=== PATIENT | female | born 1945 | race Caucasian/White ===

== ENCOUNTER 2024-08-03 18:31 | Inpatient (IN) | payer MEDICARE, OTHER ==
[~2024-08-03] VITALS: Ht 170.2 cm; Wt 93.9 kg
[2024-08-03] MEDS ORDERED: HALOPERIDOL LACTATE INJ 5 MG/ML VIAL ONE (19:07)
[2024-08-03 19:16] LABS: BASOPHILS # (AUTO) 0.1 K/uL (0.0-0.2); BASOPHILS % (AUTO) 0.5 % (0.0-2.0); EOSINOPHILS # (AUTO) 0.1 K/uL (0.0-0.7); EOSINOPHILS % (AUTO) 0.7 % (0.0-6.0); HEMATOCRIT 38 % (33-45); HEMOGLOBIN 12.1 g/dL (11.5-14.8); LYMPHOCYTES # (AUTO) 0.6 K/uL (0.8-4.8); LYMPHOCYTES % (AUTO) 5.1 % (20.0-44.0); MEAN CORPUSCULAR HEMOGLOBIN 30 PG (26.0-33.0); MEAN CORPUSCULAR HGB CONC 32 g/dl (31.0-36.0); MEAN CORPUSCULAR VOLUME 94 fL (82-100); MONOCYTES # (AUTO) 0.5 K/uL (0.1-1.30); MONOCYTES % (AUTO) 4.1 % (2.0-12.0); NEUTROPHILS % (AUTO) 89.6 % (43.0-81.0); RED BLOOD CELL COUNT(AUTO) 3.99 MIL/uL (4.0-5.2); RED CELL DISTRIBUTION WIDTH 15.3 % (11.5-15.0); WHITE BLOOD COUNT (AUTO) 11.1 K/uL (4.3-11.0)
[2024-08-03] MEDS: HALOPERIDOL LACTATE INJ 5 MG/ML VIAL IM ONE (19:16)
[2024-08-03 19:24] LABS: CALCIUM, SERUM 8.7 mg/dL (8.5-10.1); CARBON DIOXIDE 25 mmol/L (21-32); CHLORIDE 108 mmol/L (98-107); CREATININE 0.9 mg/dL (0.6-1.3); GLUCOSE 197 mg/dL (74-106); POTASSIUM 3.9 mmol/L (3.5-5.1); SODIUM SERUM 141 mmol/L (136-145)
[2024-08-03 19:36] LABS: ALANINE AMINOTRANSFERASE 26 U/L (12-78); ALBUMIN 2.9 g/dL (3.4-5.0); ALCOHOL, BLOOD < 3 mg/dL (0-10); ALKALINE PHOSPHATASE 72 U/L (46-116); ASPARTATE AMINOTRANSFERASE 26 U/L (15-37); BILIRUBIN,DIRECT 0.1 mg/dL (0.0-0.2); BILIRUBIN,TOTAL 0.4 mg/dL (0.2-1.0); SALICYLATE 0.8 mg/dL (2.8-20.0); TOTAL PROTEIN, SERUM 6.5 g/dL (6.4-8.2)
[2024-08-03 19:37] LABS: ACETAMINOPHEN <10 ug/ml (10-30)
[2024-08-03 19:51] LABS: UREA NITROGEN, BLOOD 25 mg/dL (7-18)
[2024-08-03 19:55] LABS: PLATELET COUNT (AUTO) 192 K/uL (150-450)
[2024-08-03] MEDS ORDERED: ALPR0.5T8 PO (19:58)
[2024-08-03] MEDS ORDERED: OMEP20CA15 PO (19:58)
[2024-08-03] MEDS ORDERED: OLAN5TAB3 PO (19:58)
[2024-08-03] MEDS ORDERED: MELA3TAB41 PO (19:58)
[2024-08-03] MEDS ORDERED: ACET325T53 PO (19:58)
[2024-08-03] MEDS ORDERED: LIDO700A30 TP (19:58)
[2024-08-03] MEDS ORDERED: LEVO112T7 PO (19:58)
[2024-08-03] MEDS ORDERED: RIVA10TA PO (19:58)
[2024-08-03] MEDS ORDERED: ALBU18HF2 INH (19:58)
[2024-08-03] MEDS ORDERED: CHOL100034 PO (19:58)
[2024-08-03] MEDS ORDERED: DIPH1TAB PO (19:58)
[2024-08-03] MEDS ORDERED: BREO ELLIPTA IH (19:58)
[2024-08-03] MEDS ORDERED: ROSU20TA32 PO (19:58)
[2024-08-03] MEDS ORDERED: MEMA10TA56 PO (19:58)
[2024-08-03] MEDS ORDERED: ALBU2.5V38 NEB (19:58)
[2024-08-03] MEDS ORDERED: HYDR-4076 PO (19:58)
[2024-08-03] MEDS ORDERED: HYDR10TA PO (19:58)
[2024-08-03] MEDS ORDERED: NITR0.4T48 SL (19:58)
[2024-08-03 21:30] LABS: APPEARANCE,URINE Clear (CLEAR); BILIRUBIN,URINE Negative (NEGATIVE); BLOOD, URINE Negative Ery/uL (NEGATIVE); COLOR,URINE YELLOW (YELLOW); KETONES,URINE Negative (NEGATIVE); LEUKOCYTE ESTERASE ,URINE Negative (NEGATIVE); NITRITE, URINE Negative (NEGATIVE); PH,URINE 5.5 (5.0-8.0); PROTEIN,URINE Trace mg/dl (NEGATIVE); UGLUCOSE Negative (NEGATIVE); UROBILINOGEN,URINE 0.2 EU/dL (0.2)
[2024-08-03 21:35] LABS: ADD URINE CULTURE NO; BACTERIA,URINE Few /HPF (None Seen); SQUAMOUS EPITHELIAL CELL,UR Few /HPF (None Seen)
[2024-08-03 21:40] LABS: AMPHETAMINE, URINE NEGATIVE (NEGATIVE); BENZODIAZEPINE, URINE POSITIVE (NEGATIVE); CANNABINOID, URINE NEGATIVE (NEGATIVE); COCCAINE, URINE NEGATIVE (NEGATIVE); OPIATE, URINE NEGATIVE (NEGATIVE); PHENCYCLIDINE SCREEN,URINE NEGATIVE (NEGATIVE)
[2024-08-03 21:50] LABS: BARBITURATE, URINE NEGATIVE (NEGATIVE)
[2024-08-04] MEDS: BLOOD SUGAR DIAGNOSTIC 1 EACH STRIP IN ONE (02:22)
[2024-08-04] MEDS ORDERED: MAGNESIUM HYDROXIDE 30 ML UDC PO PRN (02:30)
[2024-08-04] MEDS ORDERED: MAG HYDROX/AL HYDROX/SIMETH 30 ML UDC PO PRN (02:30)
[2024-08-04] MEDS ORDERED: ZOLPIDEM TARTRATE 5 MG TABLET PO PRN (02:30)
[2024-08-04] MEDS ORDERED: LORAZEPAM 1 MG TABLET PO PRN (02:30)
[2024-08-04 03:00] VITALS: BP 122/79; TEMP 98; O2SAT 100
[2024-08-04] MEDS ORDERED: hydrALAZINE HCL 25 MG TABLET PO PRN (03:00)
[2024-08-04] MEDS ORDERED: NITROGLYCERIN 0.4 MG/TAB BOTTLE SL PRN (03:00)
[2024-08-04] MEDS ORDERED: ALBUTEROL FS 2.5 MG/3 ML VIAL.NEB NEB PRN (03:00)
[2024-08-04 07:47] LABS: ALANINE AMINOTRANSFERASE 24 U/L (12-78); ALBUMIN 2.8 g/dL (3.4-5.0); ALKALINE PHOSPHATASE 75 U/L (46-116); ASPARTATE AMINOTRANSFERASE 21 U/L (15-37); BILIRUBIN,TOTAL 0.3 mg/dL (0.2-1.0); CALCIUM, SERUM 8.9 mg/dL (8.5-10.1); CARBON DIOXIDE 28 mmol/L (21-32); CHLORIDE 110 mmol/L (98-107); CREATININE 0.7 mg/dL (0.6-1.3); GLUCOSE 92 mg/dL (74-106); POTASSIUM 3.8 mmol/L (3.5-5.1); SODIUM SERUM 143 mmol/L (136-145); TOTAL PROTEIN, SERUM 6.5 g/dL (6.4-8.2); UREA NITROGEN, BLOOD 21 mg/dL (7-18)
[2024-08-04 07:58] LABS: CHOLESTEROL 83 mg/dL (<200); HDL CHOLESTEROL 51 mg/dL (40-60); LDL 24 mg/dL (0-99); TRIGLYCERIDES 65 mg/dL (30-150)
[2024-08-04 08:00] VITALS: BP 147/58; TEMP 98.7; O2SAT 98
[2024-08-04] MEDS: LEVOTHYROXINE SODIUM 112 MCG TABLET PO SCH (08:04)
[2024-08-04] MEDS: PANTOPRAZOLE 40 MG TABLET.DR PO SCH (08:04)
[2024-08-04] MEDS: LIDOCAINE 5% (PATCH) 1 EA PATCH TP SCH (09:39)
[2024-08-04] MEDS: CHOLECALCIFEROL 1,000 UNIT TABLET (VIT D3) PO SCH (09:40)
[2024-08-04] MEDS: ATORVASTATIN 40 MG TABLET PO SCH (09:40)
[2024-08-04] MEDS: Z GUARD REMEDY 4 OZ OINT TP PRN (09:41)
[2024-08-04] MEDS: Z GUARD REMEDY 4 OZ OINT TP SCH (09:43)
[2024-08-04] MEDS: FLUTICASONE/VILANTEROL 1 EACH BLST.W.DEV IH SCH (09:43)
[2024-08-04 16:00] VITALS: BP 133/80; TEMP 98.6; O2SAT 99
[2024-08-04] MEDS: OLANZAPINE 5 MG TABLET PO SCH (17:31)
[2024-08-04] MEDS: RIVAROXABAN 10 MG TABLET PO SCH (18:00)
[2024-08-04] MEDS: LORAZEPAM 1 MG TABLET PO PRN (19:16)
[2024-08-04 20:00] VITALS: BP 97/76; TEMP 98.3; O2SAT 96
[2024-08-04] MEDS: MEMANTINE HCL 5 MG TABLET PO SCH (20:21)
[2024-08-05] MEDS: ZOLPIDEM TARTRATE 5 MG TABLET PO PRN (01:54)
[2024-08-05 08:00] VITALS: BP 153/100; TEMP 97.9; O2SAT 96
[2024-08-05 16:00] VITALS: BP 159/64; TEMP 97.9; O2SAT 96
[2024-08-05 20:00] VITALS: BP 103/64; TEMP 97.8; O2SAT 95
[2024-08-05 22:00] VITALS: BP 103/64
[2024-08-06 08:00] VITALS: BP 143/87; TEMP 98; O2SAT 98
[2024-08-06 10:00] VITALS: BP 143/87
[2024-08-06 16:00] VITALS: BP 102/71; TEMP 98; O2SAT 96
[2024-08-06 20:00] VITALS: BP 110/73; TEMP 98.2; O2SAT 96
[2024-08-06 22:00] VITALS: BP 143/87
[2024-08-07 08:00] VITALS: BP 152/69; TEMP 97.5; O2SAT 94
[2024-08-07 10:00] VITALS: BP 152/69
[2024-08-07 16:00] VITALS: BP 141/63; TEMP 97.6; O2SAT 94
[2024-08-07 20:47] VITALS: BP 133/97; TEMP 97.8; O2SAT 95
[2024-08-07 22:00] VITALS: BP 133/97
[2024-08-08] MEDS: ACETAMINOPHEN 325 MG TABLET PO PRN (02:05)
[2024-08-08 08:00] VITALS: BP 123/77; TEMP 98.6; O2SAT 96
[2024-08-08] MEDS ORDERED: hydrOXYzine PAMOATE 25 MG CAPSULE PO PRN (11:30)
[2024-08-08 16:02] VITALS: BP 105/50; TEMP 98.1; O2SAT 95
[2024-08-08] MEDS: OLANZAPINE 5 MG TABLET PO SCH (17:29)
[2024-08-08] MEDS ORDERED: ALBUTEROL FS 2.5 MG/3 ML VIAL.NEB NEB PRN (17:33)
[2024-08-08 20:42] VITALS: BP 99/62; TEMP 98.2; O2SAT 96
[2024-08-09 08:00] VITALS: BP 101/55; TEMP 98.6; O2SAT 96
[2024-08-09 16:00] VITALS: BP 116/76; TEMP 98.6; O2SAT 98
[2024-08-09 19:52] VITALS: BP 101/55; TEMP 98.6; O2SAT 98
[2024-08-09 20:00] VITALS: BP 102/58; TEMP 98.3; O2SAT 96
[2024-08-09 20:13] VITALS: BP 102/58; TEMP 98.3; O2SAT 96
[2024-08-10 08:00] VITALS: BP 126/74; TEMP 97.8; O2SAT 97
[2024-08-10 16:00] VITALS: BP 109/76; TEMP 97.9; O2SAT 96
[2024-08-10] MEDS: OLANZAPINE 10 MG VIAL IM STA (16:03)
[2024-08-10] MEDS ORDERED: ENSURE ENLIVE CHOC 237 ML CAN PO SCH (17:00)
[2024-08-10] MEDS: GLUCERNA SHAKE 237 ML CAN PO SCH (17:00)
[2024-08-10 20:00] VITALS: BP 97/73; TEMP 98; O2SAT 99
[2024-08-11 07:40] LABS: BASOPHILS % (AUTO) 0.6 % (0.0-2.0); EOSINOPHILS # (AUTO) 0.2 K/uL (0.0-0.7); HEMATOCRIT 38 % (33-45); HEMOGLOBIN 12.7 g/dL (11.5-14.8); LYMPHOCYTES % (AUTO) 14.9 % (20.0-44.0); MEAN CORPUSCULAR HEMOGLOBIN 30 PG (26.0-33.0); MEAN CORPUSCULAR HGB CONC 34 g/dl (31.0-36.0); MEAN CORPUSCULAR VOLUME 89 fL (82-100); MONOCYTES # (AUTO) 0.8 K/uL (0.1-1.30); MONOCYTES % (AUTO) 12.1 % (2.0-12.0); NEUTROPHILS # (AUTO) 4.5 K/uL (1.8-8.9); NEUTROPHILS % (AUTO) 69.4 % (43.0-81.0); PLATELET COUNT (AUTO) 185 K/uL (150-450); RED BLOOD CELL COUNT(AUTO) 4.24 MIL/uL (4.0-5.2); WHITE BLOOD COUNT (AUTO) 6.5 K/uL (4.3-11.0)
[2024-08-11 07:41] LABS: CALCIUM, SERUM 9.6 mg/dL (8.5-10.1); CARBON DIOXIDE 24 mmol/L (21-32); CHLORIDE 106 mmol/L (98-107); GLUCOSE 109 mg/dL (74-106); MAGNESIUM 1.9 mg/dL (1.8-2.4); POTASSIUM 3.5 mmol/L (3.5-5.1); SODIUM SERUM 142 mmol/L (136-145); UREA NITROGEN, BLOOD 33 mg/dL (7-18)
[2024-08-11 08:00] VITALS: BP 142/80; TEMP 97.7; O2SAT 98
[2024-08-11] MEDS: ATORVASTATIN 10 MG TABLET PO SCH (09:09)
[2024-08-11 16:00] VITALS: BP 106/80; TEMP 98.1; O2SAT 97
[2024-08-11] MEDS: OLANZAPINE 5 MG TABLET PO SCH (16:51)
[2024-08-11 20:00] VITALS: BP 114/58; TEMP 98.3; O2SAT 97
[2024-08-12 08:00] VITALS: BP 131/78; TEMP 97.4; O2SAT 98
[2024-08-12 16:00] VITALS: BP 126/80; TEMP 98.9; O2SAT 95
[2024-08-12 20:00] VITALS: BP 111/93; TEMP 98.7; O2SAT 95
[2024-08-13 08:00] VITALS: BP 99/77; TEMP 97.5; O2SAT 94
[2024-08-13 16:00] VITALS: BP 103/71; TEMP 98; O2SAT 99
[2024-08-13 20:00] VITALS: BP 143/71; TEMP 98.1; O2SAT 95
[2024-08-14 08:00] VITALS: BP 115/65; TEMP 97.9; O2SAT 99
[2024-08-14 16:00] VITALS: BP 95/54; TEMP 98.4; O2SAT 94
[2024-08-14] MEDS: OLANZAPINE 5 MG TABLET PO SCH (17:00)
[2024-08-14 20:31] VITALS: BP 124/74; TEMP 98; O2SAT 98
[2024-08-14] MEDS: OLANZAPINE 10 MG TABLET PO SCH (22:14)
[2024-08-15] MEDS ORDERED: LORAZEPAM 0.5 MG TABLET PO ONE (13:00)
[2024-08-15] MEDS: DOXYCYCLINE HYCLATE (100 MG) 100 MG TABLET PO SCH (13:05)
[2024-08-15 16:01] LABS: BASOPHILS # (AUTO) 0.1 K/uL (0.0-0.2); BASOPHILS % (AUTO) 0.6 % (0.0-2.0); EOSINOPHILS # (AUTO) 0.1 K/uL (0.0-0.7); EOSINOPHILS % (AUTO) 0.6 % (0.0-6.0); HEMATOCRIT 38 % (33-45); HEMOGLOBIN 12.7 g/dL (11.5-14.8); LYMPHOCYTES # (AUTO) 0.4 K/uL (0.8-4.8); LYMPHOCYTES % (AUTO) 3.2 % (20.0-44.0); MEAN CORPUSCULAR HEMOGLOBIN 30 PG (26.0-33.0); MEAN CORPUSCULAR HGB CONC 34 g/dl (31.0-36.0); MEAN CORPUSCULAR VOLUME 90 fL (82-100); MONOCYTES # (AUTO) 0.7 K/uL (0.1-1.30); MONOCYTES % (AUTO) 5.4 % (2.0-12.0); NEUTROPHILS # (AUTO) 11.6 K/uL (1.8-8.9); NEUTROPHILS % (AUTO) 90.2 % (43.0-81.0); PLATELET COUNT (AUTO) 178 K/uL (150-450); RED BLOOD CELL COUNT(AUTO) 4.23 MIL/uL (4.0-5.2); RED CELL DISTRIBUTION WIDTH 15.1 % (11.5-15.0); WHITE BLOOD COUNT (AUTO) 12.9 K/uL (4.3-11.0)
[2024-08-15 16:08] LABS: CALCIUM, SERUM 9.4 mg/dL (8.5-10.1); CARBON DIOXIDE 25 mmol/L (21-32); CHLORIDE 108 mmol/L (98-107); CREATININE 0.9 mg/dL (0.6-1.3); GLUCOSE 101 mg/dL (74-106); POTASSIUM 3.4 mmol/L (3.5-5.1); SODIUM SERUM 145 mmol/L (136-145); UREA NITROGEN, BLOOD 43 mg/dL (7-18)
[2024-08-15 16:14] LABS: ALANINE AMINOTRANSFERASE 20 U/L (12-78); ALBUMIN 3.3 g/dL (3.4-5.0); ALKALINE PHOSPHATASE 96 U/L (46-116); ASPARTATE AMINOTRANSFERASE 44 U/L (15-37); BILIRUBIN,TOTAL 0.7 mg/dL (0.2-1.0); MAGNESIUM 2.4 mg/dL (1.8-2.4); TOTAL PROTEIN, SERUM 7.6 g/dL (6.4-8.2)
[2024-08-15 21:32] VITALS: BP 108/59; TEMP 97.9; O2SAT 95
[2024-08-15] MEDS: POTASSIUM CHLORIDE 10 MEQ TABLET.SA PO ONE (22:16)
[2024-08-16 08:00] VITALS: BP 107/57; TEMP 98.7; O2SAT 97
[2024-08-16 16:00] VITALS: BP 111/69; TEMP 98.1; O2SAT 98
[2024-08-16 20:00] VITALS: BP 90/72; TEMP 97.7; O2SAT 95
[2024-08-17 07:15] LABS: BASOPHILS # (AUTO) 0.1 K/uL (0.0-0.2); BASOPHILS % (AUTO) 0.6 % (0.0-2.0); EOSINOPHILS # (AUTO) 0.2 K/uL (0.0-0.7); EOSINOPHILS % (AUTO) 2.2 % (0.0-6.0); HEMATOCRIT 39 % (33-45); HEMOGLOBIN 12.9 g/dL (11.5-14.8); LYMPHOCYTES # (AUTO) 1.1 K/uL (0.8-4.8); MEAN CORPUSCULAR HEMOGLOBIN 30 PG (26.0-33.0); MEAN CORPUSCULAR HGB CONC 33 g/dl (31.0-36.0); MEAN CORPUSCULAR VOLUME 92 fL (82-100); MONOCYTES # (AUTO) 0.9 K/uL (0.1-1.30); MONOCYTES % (AUTO) 9.8 % (2.0-12.0); NEUTROPHILS # (AUTO) 6.7 K/uL (1.8-8.9); NEUTROPHILS % (AUTO) 75.4 % (43.0-81.0); PLATELET COUNT (AUTO) 160 K/uL (150-450); RED BLOOD CELL COUNT(AUTO) 4.26 MIL/uL (4.0-5.2); RED CELL DISTRIBUTION WIDTH 14.9 % (11.5-15.0); WHITE BLOOD COUNT (AUTO) 8.9 K/uL (4.3-11.0)
[2024-08-17 07:41] LABS: CALCIUM, SERUM 9.4 mg/dL (8.5-10.1); CARBON DIOXIDE 22 mmol/L (21-32); CHLORIDE 104 mmol/L (98-107); CREATININE 0.9 mg/dL (0.6-1.3); GLUCOSE 96 mg/dL (74-106); MAGNESIUM 2.2 mg/dL (1.8-2.4); PHOSPHORUS 3.4 mg/dL (2.5-4.9); POTASSIUM 3.7 mmol/L (3.5-5.1); SODIUM SERUM 137 mmol/L (136-145); UREA NITROGEN, BLOOD 44 mg/dL (7-18)
[2024-08-17 08:00] VITALS: BP 109/77; TEMP 98.6; O2SAT 96
[2024-08-17] MEDS: NEOMY SULF/BACITRAC ZN/POLY 15 GM TUBE TP SCH (11:44)
[2024-08-17] MEDS: CLOTRIMAZOLE 1% 15 GM TUBE TP SCH (11:44)
[2024-08-17] MEDS: GENTAMICIN 80 MG/2 ML VIAL IM SCH (11:47)
[2024-08-17 16:00] VITALS: BP 122/83; TEMP 98.6; O2SAT 98
[2024-08-17] MEDS: OLANZAPINE 5 MG TABLET PO SCH (16:27)
[2024-08-17 20:00] VITALS: BP 89/54; TEMP 98; O2SAT 95
[2024-08-17] MEDS: OLANZAPINE 10 MG TABLET PO SCH (21:24)
[2024-08-18 07:49] LABS: CALCIUM, SERUM 9.1 mg/dL (8.5-10.1); CARBON DIOXIDE 25 mmol/L (21-32); CHLORIDE 109 mmol/L (98-107); CREATININE 0.8 mg/dL (0.6-1.3); GLUCOSE 86 mg/dL (74-106); POTASSIUM 3.5 mmol/L (3.5-5.1); SODIUM SERUM 143 mmol/L (136-145); UREA NITROGEN, BLOOD 41 mg/dL (7-18)
[2024-08-18 08:00] VITALS: BP 106/89; TEMP 97.9; O2SAT 95
[2024-08-18 16:07] VITALS: BP 127/69; TEMP 97.9; O2SAT 98
[2024-08-18 20:00] VITALS: BP 130/88; TEMP 97.6; O2SAT 98
[2024-08-19 07:09] LABS: CALCIUM, SERUM 9.5 mg/dL (8.5-10.1); CARBON DIOXIDE 25 mmol/L (21-32); CHLORIDE 105 mmol/L (98-107); CREATININE 0.8 mg/dL (0.6-1.3); GLUCOSE 97 mg/dL (74-106); POTASSIUM 3.6 mmol/L (3.5-5.1); SODIUM SERUM 140 mmol/L (136-145); UREA NITROGEN, BLOOD 32 mg/dL (7-18)
[2024-08-19 08:00] VITALS: BP 150/90; TEMP 97.7; O2SAT 98
[2024-08-19 10:40] LABS: CALCIUM, SERUM 9.8 mg/dL (8.5-10.1); CARBON DIOXIDE 21 mmol/L (21-32); CHLORIDE 106 mmol/L (98-107); CREATININE 0.8 mg/dL (0.6-1.3); GLUCOSE 99 mg/dL (74-106); POTASSIUM 3.7 mmol/L (3.5-5.1); SODIUM SERUM 138 mmol/L (136-145); UREA NITROGEN, BLOOD 31 mg/dL (7-18)
[2024-08-19 11:43] LABS: BASOPHILS % (AUTO) 0.6 % (0.0-2.0); EOSINOPHILS # (AUTO) 0.3 K/uL (0.0-0.7); EOSINOPHILS % (AUTO) 3.6 % (0.0-6.0); HEMATOCRIT 37 % (33-45); HEMOGLOBIN 12.4 g/dL (11.5-14.8); LYMPHOCYTES # (AUTO) 0.8 K/uL (0.8-4.8); LYMPHOCYTES % (AUTO) 10.6 % (20.0-44.0); MEAN CORPUSCULAR HEMOGLOBIN 30 PG (26.0-33.0); MEAN CORPUSCULAR HGB CONC 33 g/dl (31.0-36.0); MEAN CORPUSCULAR VOLUME 90 fL (82-100); MONOCYTES % (AUTO) 12.6 % (2.0-12.0); NEUTROPHILS # (AUTO) 5.6 K/uL (1.8-8.9); NEUTROPHILS % (AUTO) 72.6 % (43.0-81.0); PLATELET COUNT (AUTO) 201 K/uL (150-450); RED BLOOD CELL COUNT(AUTO) 4.12 MIL/uL (4.0-5.2); RED CELL DISTRIBUTION WIDTH 15.1 % (11.5-15.0); WHITE BLOOD COUNT (AUTO) 7.8 K/uL (4.3-11.0)
[2024-08-19 16:00] VITALS: BP 126/86; TEMP 97.5; O2SAT 95
[2024-08-19 20:00] VITALS: BP 100/58; TEMP 97.6; O2SAT 96
[2024-08-20 07:56] LABS: CALCIUM, SERUM 10.1 mg/dL (8.5-10.1); CARBON DIOXIDE 21 mmol/L (21-32); CHLORIDE 105 mmol/L (98-107); CREATININE 0.8 mg/dL (0.6-1.3); GLUCOSE 102 mg/dL (74-106); POTASSIUM 3.6 mmol/L (3.5-5.1); SODIUM SERUM 140 mmol/L (136-145); UREA NITROGEN, BLOOD 30 mg/dL (7-18)
[2024-08-20 08:00] VITALS: BP 107/69; TEMP 97.8; O2SAT 96
== END 2024-08-20 13:25 | DRG 885 ==
LOC: ER 18:38 → GPS 08-04 01:20
PROVIDERS: ADMIT Psychiatry & Neurology Psychiatry; ATTEND Nurse Practitioner Family
DX: F29 Unspecified psychosis not due to a substance or known physiological condition (principal); J15.69 Pneumonia due to other Gram-negative bacteria; F03.92 Unspecified dementia, unspecified severity, with psychotic disturbance; F03.94 Unspecified dementia, unspecified severity, with anxiety; G93.40 Encephalopathy, unspecified; L97.829 Non-pressure chronic ulcer of other part of left lower leg with unspecified severity; I25.10 Atherosclerotic heart disease of native coronary artery without angina pectoris; I10 Essential (primary) hypertension; F41.9 Anxiety disorder, unspecified; R73.03 Prediabetes; Z79.899 Other long term (current) drug therapy; Z89.511 Acquired absence of right leg below knee; Z20.822 Contact with and (suspected) exposure to COVID-19; Z73.6 Limitation of activities due to disability; G40.909 Epilepsy, unspecified, not intractable, without status epilepticus; E66.9 Obesity, unspecified; I73.9 Peripheral vascular disease, unspecified; S80.12XA Contusion of left lower leg, initial encounter; X58.XXXA Exposure to other specified factors, initial encounter; Y93.9 Activity, unspecified; Y92.89 Other specified places as the place of occurrence of the external cause
CPT/HCPCS: 36415; 71045-TC; 71250-TC; 80048-TC; 80053-TC; 80061-TC; 80076-TC; 80170-TC; 81001; 82308; 82962-TC; 83735-TC; 84100-TC; 84443-TC; 85025-TC; 87081-TC; 97112-TC; 97530-TC; 98960; A6403; G0480; J1580; J1630; J3490